=== PATIENT | female | born 1970 | race Caucasian/White ===

== ENCOUNTER 2017-08-17 15:26 | Emergency (ER) | payer OTHER | END 2017-08-17 15:36 | disposition admitted as inpatient to this hospital (09) | LOC: ERH 15:26 | DX: R09.89 Other specified symptoms and signs involving the circulatory and respiratory systems (principal); R50.9 Fever, unspecified ==

== ENCOUNTER 2018-01-25 10:14 | Emergency (ER) | payer OTHER ==
[~2018-01-25] VITALS: Ht 162.6 cm; Wt 92.1 kg
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
[2018-01-25] MEDS ORDERED: IBUPROFEN800 M1 PO (12:22)
[2018-01-25] MEDS ORDERED: CYCLOBENZAPRINE10 M1 PO (12:22)
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
[2018-01-25] MEDS ORDERED: PERCOCET 5-3251 EACH PO (13:01)
[2018-01-25 13:04] VITALS: BP 121/61
== END 2018-01-25 13:09 ==
LOC: ERH 10:14
DX: S16.1XXA Strain of muscle, fascia and tendon at neck level, initial encounter (principal); V49.40XA Driver injured in collision with unspecified motor vehicles in traffic accident, initial encounter; Y92.9 Unspecified place or not applicable
CPT/HCPCS: J1885